=== PATIENT | female | born 1985 ===

== ENCOUNTER 2021-06-14 23:53 | Inpatient (IN) | payer MEDICAID ==
[~2021-06-14] VITALS: Ht 175.3 cm; Wt 100.1 kg
[2021-06-15] MEDS ORDERED: acetaminophen 325mg tablet PO PRN ×2 (09:35)
[2021-06-15] MEDS ORDERED: OLANZapine 2.5MG tablet PO ONE (10:50)
[2021-06-15 11:40] VITALS: BP 139/87
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
[2021-06-15] MEDS: LORazepam 1 MG tablet PO PRN (17:36)
[2021-06-15] MEDS ORDERED: OLANZapine 5mg rapidly disint. tablet PO ONE (17:40)
[2021-06-15] MEDS ORDERED: LORazepam 1 MG tablet PO ONE (17:40)
[2021-06-15 20:03] VITALS: BP 118/82
[2021-06-15] MEDS ORDERED: valproic acid 250mg capsule PO SCH (21:00)
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
[2021-06-16 08:00] VITALS: BP 125/83
[2021-06-16] MEDS ORDERED: doxepin 10mg capsule PO SCH (08:00)
[2021-06-16] MEDS ORDERED: aripiprazole 5mg tablet PO SCH (08:00)
[2021-06-16] MEDS: FLUoxetine 20mg capsule PO SCH (08:09)
[2021-06-16] MEDS: LORazepam 1 MG tablet PO PRN ×3 (08:09→22:04)
[2021-06-16 08:18] LABS: BASOPHILS # (AUTO) 0.1 X10'3 (0-0.2); BASOPHILS % (AUTO) 1.2 % (0-1); EOSINOPHILS # (AUTO) 0.5 X10'3 (0-0.9); EOSINOPHILS % (AUTO) 6.5 % (0-6); HEMATOCRIT 42.5 % (35.0-45.0); HEMOGLOBIN 14.3 g/dl (12.0-16.0); LYMPHOCYTES # (AUTO) 2.4 X10'3 (1.1-4.8); LYMPHOCYTES % (AUTO) 34.8 % (21-51); MEAN CORPUSCULAR HGB CONC 33.6 g/dL (33.0-36.5); MEAN CORPUSCULAR VOLUME 89.2 FL (78-98); MEAN PLATELET VOLUME 9.1 FL (7.4-10.4); MONOCYTES # (AUTO) 0.8 X10'3 (0-0.9); MONOCYTES % (AUTO) 11.2 % (2-12); NEUTROPHILS # (AUTO) 3.3 X10'3 (1.8-7.7); NEUTROPHILS % (AUTO) 46.3 % (42-75); PLATELET COUNT 143 X10'3 (140-440); RED BLOOD COUNT 4.77 X10'6 (4.20-5.60); RED CELL DISTRIBUTION WIDTH 14.4 % (11.5-14.5)
[2021-06-16 09:10] LABS: HEMOGLOBIN A1C 5.5 % (4.5-6.2)
[2021-06-16 09:19] LABS: ALANINE AMINOTRANSFERASE 19 U/L (12-78); ALBUMIN 3.6 G/DL (3.4-5.0); ALBUMIN/GLOBULIN RATIO 0.9 (1.1-1.5); ALKALINE PHOSPHATASE 75 IU/L (46-116); ANION GAP 13 (8-16); ASPARTATE AMINO TRANSFERASE 16 U/L (10-37); BILIRUBIN,TOTAL 0.3 MG/DL (0.1-1.0); BLOOD UREA NITROGEN 7 MG/DL (7-18); BUN/CREATININE RATIO 8.5 (6.6-38.0); CALCIUM 8.6 MG/DL (8.5-10.1); CHLORIDE 103 MMOL/L (99-107); CHOL/HDL RATIO 3.5 (0.00-4.99); CHOLESTEROL 182 MG/DL (0-200); CREATININE 0.82 MG/DL (0.40-0.90); GLUCOSE 78 MG/DL (70-104); HDL CHOLESTEROL 52 MG/DL (35-60); LDL CHOLESTEROL 96 MG/DL (50-100); POTASSIUM 3.8 MMOL/L (3.5-5.1); SODIUM 141 MMOL/L (135-145); TOTAL CARBON DIOXIDE 25.1 MMOL/L (24-32); TOTAL PROTEIN 7.5 G/DL (6.4-8.2); TRIGLYCERIDES 65 MG/DL (20-135); eGFR 80 ML/MIN
[2021-06-16] MEDS ORDERED: diphenhydrAMINE 50 mg/ml inj IM ONE (09:35)
[2021-06-16] MEDS ORDERED: haloperidol lactate 5mg/ml inj IM ONE (09:35)
[2021-06-16] MEDS ORDERED: LORazepam 2 mg/ml vial IM ONE (09:35)
[2021-06-16] MEDS ORDERED: haloperidol lactate 5mg/ml inj ONE (09:42)
[2021-06-16] MEDS ORDERED: diphenhydrAMINE 50 mg/ml inj ONE (09:42)
[2021-06-16] MEDS ORDERED: LORazepam 2 mg/ml vial ONE (09:43)
[2021-06-16] MEDS ORDERED: ARIP10TA8 PO (10:18)
[2021-06-16] MEDS ORDERED: DOXE10CA2 PO (10:18)
[2021-06-16] MEDS ORDERED: FLUO40CA10 PO (10:18)
[2021-06-16] MEDS ORDERED: VALP250C3 PO (10:18)
[2021-06-16 15:18] LABS: HCG SERUM QL NEGATIVE
--- NOTE | 2021-06-16 17:37 | NUR ---
Group Art Tx, Continued: Patient entered into the group room with only 15 minutes remaining in the session. Patient was encouraged to sit down, observe and also was provided with paper and oils pastels, if she chose to draw about how she was feelings. Patient did draw a heart shaped image and wrote about some people and primarily God. She did not choose to share before the group ended. *Please refer to [facility] for a complete overview of today session. Denice Puente MA, AUTOMOTIVE ELECTRICAL FITTER #[id number] [facility] Art Therapist Addendum: 06/16/21 at 1739 by Denice Puente SS Amended: Links added.
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
[2021-06-16] MEDS: valproic acid 250mg capsule PO SCH (19:21)
[2021-06-16] MEDS: doxepin 10mg capsule PO SCH (19:21)
[2021-06-16] MEDS: haloperidol 5mg tablet PO SCH (19:48)
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
[2021-06-17 07:37] VITALS: BP 107/68
[2021-06-17] MEDS ORDERED: ARIPIPRAZOLE 10 MG TABLET PO SCH (08:00)
[2021-06-17] MEDS: LORazepam 1 MG tablet PO PRN (08:06)
[2021-06-17] MEDS: haloperidol 5mg tablet PO SCH ×3 (08:06→20:40)
[2021-06-17] MEDS: valproic acid 250mg capsule PO SCH ×3 (08:06→20:40)
[2021-06-17] MEDS: FLUoxetine 20mg capsule PO SCH (08:06)
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
[2021-06-17 20:00] VITALS: BP 119/63
[2021-06-17] MEDS: doxepin 10mg capsule PO SCH ×2 (20:00→20:40)
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
[2021-06-18 07:38] VITALS: BP 126/60
[2021-06-18] MEDS: FLUoxetine 20mg capsule PO SCH (08:09)
[2021-06-18] MEDS: haloperidol 5mg tablet PO SCH ×2 (08:09→21:27)
[2021-06-18] MEDS: valproic acid 250mg capsule PO SCH ×2 (08:09→21:27)
--- NOTE | 2021-06-18 11:30 | NUR ---
Attempted to meet with Kristi twice this morning. Both times she was sleeping and snoring heavily. Unable to wake her up. RADHA Umaña
--- NOTE | 2021-06-18 13:47 | NUR ---
Called [facility] to get a contact number for Kristi's mom. Mom: Aretha-ph# [phone] Attempted to call the number a couple times and was unable to leave a voicemail. Provided Kristi with the phone# and encouraged her to call. RADHA Umaña
[2021-06-18] MEDS: LORazepam 1 MG tablet PO PRN (15:34)
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
[2021-06-18 19:50] VITALS: BP 113/76
[2021-06-18] MEDS: doxepin 10mg capsule PO SCH (21:27)
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
[2021-06-19 07:35] VITALS: BP 94/61
[2021-06-19] MEDS: valproic acid 250mg capsule PO SCH ×2 (07:54→19:05)
[2021-06-19] MEDS: haloperidol 5mg tablet PO SCH ×2 (07:54→19:08)
[2021-06-19] MEDS: FLUoxetine 20mg capsule PO SCH (07:54)
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
[2021-06-19 19:05] VITALS: BP 118/79
[2021-06-19] MEDS: doxepin 10mg capsule PO SCH (19:08)
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
--- NOTE | 2021-06-20 07:31 | NUR ---
Initial: Pt admitted w/ schizophrenia and suicidal ideations per EMR. Pt currently on Regular diet w/ variable PO intake, overall avg 63% of meals which meets approximately 92% of est energy needs and 93% of est protein needs. Pt noted to be A&O x 1 and confused though able to feed self. LBM 2/3. No nutrition intervention implemented at this time, will continue to monitor. Recs: 1. Continue Regular diet as tolerated 2. Monitor need for ONS 3. Bowel care per rx 4. Weekly wts Addendum: 06/20/21 at [address] Amended: Links added.
[2021-06-20 07:34] VITALS: BP 109/76
--- NOTE | 2021-06-20 08:00 | NUR ---
UNABLE TO WAKE PT FOR HER MEDICATIONS.
--- NOTE | 2021-06-20 09:00 | NUR ---
UNABLE TO WAKE PT UP ENOUGH TO EAT OR TAKE HER MEDICATIONS. WILL NOTIFY RON. MICHELLE
--- NOTE | 2021-06-20 10:30 | NUR ---
PT CONTINUES TO SLEEP; RR EVEN SOMEWHAT LABORED. VS WNL'S.
[2021-06-20] MEDS: haloperidol 5mg tablet PO SCH (11:26)
[2021-06-20] MEDS: valproic acid 250mg capsule PO SCH ×2 (11:27→21:02)
[2021-06-20] MEDS: FLUoxetine 20mg capsule PO SCH (11:27)
--- NOTE | 2021-06-20 11:31 | NUR ---
PT NOW AWAKE. BREAKFAST HEATED AND GIVEN TO THE PT. AM MEDICATIONS GIVEN TO HER PRESCRIBED.
[2021-06-20] MEDS ORDERED: LORazepam 1 MG tablet PO PRN (14:05)
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
[2021-06-20 19:44] VITALS: BP 118/79
[2021-06-20] MEDS ORDERED: haloperidol 5mg tablet PO SCH (21:00)
[2021-06-20] MEDS: doxepin 10mg capsule PO SCH (21:01)
--- NOTE | 2021-06-21 01:19 | NUR ---
Nursing Progress Note Legal hold: [id number] Client on involuntary status for GD/DTS Report received from: SATISH Lyon, with use of SBAR Why are they here: Pt brought to [facility] from [facility]. Pt on 5150 for DTS. Pt found in street wanting to be hit by a car. Pt reports wanting to kill herself. Assessment What has happened this shift: Patient active on the unit and listening to headphones at the beginning of shift. Pleasant and cooperative with care; compliant with medication. She was observed responding to IS; denies SI, HI. Patient continues to require prompting and redirection at times; she was observed entering peer rooms this shift but remained pleasant and cooperative when asked to stay out of their rooms. Patient participated in HS snack prior to bed. She is observed sleeping; continues to appear apneic and snores loudly. SI/ H/I: Denies A/VH: +AH Sleep: Refer to sleep assessment ADL's: Requires prompting/independent Group attendance: NA Were Meds taken: Yes Any med S/E: None observed or reported Mental Status Exam Appearance: Neat, wearing personal attire Eye contact: Fair Behavior: Pleasant, cooperative, listening to headphones, active, watching out the window Speech: Mumbles, difficult to understand Mood: Labile Affect: Constricted Thought process: Delusional, disorganized Thought Content: Internally preoccupied Cognition: A&O X1 (to self) Insight: Poor Judgment: Poor Interventions PRN's used: None Therapeutic interventions: Provided morning 1:1 assessment with therapeutic communication and active listening, medication administered/education/monitoring, monitored anxiety and provided intervention, distraction and redirection, and maintained Q 15min safety checks. Restraints/seclusion/emergency medication: NA Justification of Continued Inpatient Treatment: Patient requires a safe and supportive environment, crisis intervention, and time for medications to reach a therapeutic effect.
[2021-06-21 08:00] VITALS: BP 110/76
[2021-06-21] MEDS ORDERED: haloperidol 5mg tablet PO SCH (08:00)
[2021-06-21] MEDS: FLUoxetine 20mg capsule PO SCH (08:23)
[2021-06-21] MEDS: valproic acid 250mg capsule PO SCH (08:24)
--- NOTE | 2021-06-21 16:25 | NUR ---
[id number] released, hearing aid assembly supervisor ordered release of hold
[2021-06-21] MEDS ORDERED: FLUO40CA10 PO (16:44)
[2021-06-21] MEDS ORDERED: DIVA500T2 PO ×2 (16:44)
[2021-06-21] MEDS ORDERED: HALO5TAB PO ×2 (16:44)
--- NOTE | 2021-06-21 18:04 | NUR ---
Nursing Progress Note: Kristi Wong Legal hold: [id number] Client on involuntary status for GD/DTS Report received from: SATISH Jones, with use of SBAR Reason for admit: Pt brought to [facility] from [facility]. Pt on 5150 for DTS. Pt found in street wanting to be hit by a car. Pt reports wanting to kill herself. Assessment What has happened this shift: Pt received sleeping this morning. Environmental Sampling Technician woke pt. who appeared to be in a deep sleep. Pt. woke to receive her medication and 1:1 assessment completed at the bedside. Pt. denies SI, HI, A/VH, but appears internally preoccupied at times. Pt. 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 Pt. presents as very drowsy often falling asleep during assessment. Pt. ate her meals in her room per temp. guidelines, and immediately napped after eating. Later in the shift, a cohort reported the pt. in her room with her pants pulled down, door open, no privacy curtain pulled; web content writer found pt. in the middle of the room squatting attempting to urinate on the floor, she was redirected to the bathroom, web content writer encouraged pt. to protect her privacy. Pt. spent most of the shift sleeping, but did fully wake up and participate at around 1500, she was observed sitting on the exercise bike responding to internal stimuli. SI/ H/I: Denies A/VH: Denies, appears internally pre occupied. Sleep: Napping intermittently ADL's: Requires prompting/independent Group attendance: No groups offered Were Meds taken: Yes Any med S/E: None observed or reported Mental Status Exam Appearance: Young female, disheveled, and wearing street clothes Eye contact: Fair Behavior: Delusional Speech: Mumbles, hard to understand Mood: Labile Affect: Constricted Thought process: Delusional, disorganized Thought Content: Internally preoccupied Cognition: A&O X1 (to self) Insight: Poor Judgment: Poor Interventions PRN's used: None Therapeutic interventions: Provided morning 1:1 assessment with therapeutic communication and active listening, medication administered/education/monitoring, monitored anxiety and provided intervention, distraction and redirection, and maintained Q 15min safety checks. Restraints/seclusion/emergency medication: Justification of Continued Inpatient Treatment: Patient requires a safe and supportive environment, crisis intervention, and time for medications to reach a therapeutic effect.
--- NOTE | 2021-06-21 18:13 | NUR ---
Discharge Note: Pt. reviewed all documentation and signed copies were placed in chart. Pt. has f/u with Psychiatrist Appointment: 06/29/21 at 2:[address] Hawk Rodriguez [address] [address] @ . Pt. was also provided with her medications at time of discharge, all belongings reviewed, and received. Pt. left the unit at 1810 ambulated to [facility] without incident and was p/u by transport.
--- NOTE | 2021-06-22 08:17 | NUR ---
Prescription adjustment: Per Dr Ren, called to [facility] in [place] to change Depakote 500mg po BID. Also corrected the rest of the Escript that did not go through. Stopped the meds that did not get stopped. 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 Several calls made to the phone number on record [phone] with no answer and no voice mail set up.
== END 2021-06-21 18:10 | disposition home or self-care (01) | DRG 750 ==
LOC: ADULT MH 06-15 09:08
PROVIDERS: ADMIT Psychiatry & Neurology Psychiatry; ATTEND Psychiatry & Neurology Psychiatry
DX: F25.0 Schizoaffective disorder, bipolar type (principal); F79 Unspecified intellectual disabilities; R45.851 Suicidal ideations; E66.3 Overweight; E78.5 Hyperlipidemia, unspecified; J45.909 Unspecified asthma, uncomplicated; Z91.14 Patient's other noncompliance with medication regimen; Z56.0 Unemployment, unspecified; Z68.32 Body mass index [BMI] 32.0-32.9, adult
CPT/HCPCS: 36415; 80053; 80061; 80164; 82948; 83036; 84443; 84703; 85025; 87081; J1200; J1630; J2060